=== PATIENT | male | born 1970 | race Caucasian/White ===

== ENCOUNTER 2021-04-13 20:58 | Emergency (ER) | payer SELFPAY ==
[2021-04-13 21:05] VITALS: BP 127/83; PULSE 121; RESP 16; TEMP 36.9; O2SAT 96; BMI 23.3
--- NOTE | 2021-04-13 23:10 | W.ED.SKABFB ---
HPI - Skin/Abscess/Foreign Bdy General: Chief complaint: Skin/Abscess/Foreign Body Stated complaint: SPIDER BITE Time Seen by Provider: 04/13/21 21:15 History of Present Illness: HPI narrative: The patient is a 50-year-old male who says at 3 AM this morning he was drying himself off after a shower and felt something bite him on his penis. He thinks it is a brown recluse and brings it in in a glass jar . To my eye based on [employer] it is likely a brown recluse. He says his penis is swollen and has a bite shasha on it. MD complaint: insect bite/sting Tetanus up to date: no Location: genitals Severity: severe Quality: sharp Pain Consistency: constant Relieving factors: none Exacerbating factors: palpation Context: witnessed insect bite Review of Systems General: Reports: 10 or more systems reviewed and unremarkable except in HPI and below Const: Denies: fatigue Eyes: Denies: change in vision, blurry vision or eye redness ENMT: Denies: throat pain, swelling of lips/tongue, ear or mastoid pain or nasal congestion Card: Denies: chest pain, palpitations, irregular heart rhythm, edema, dyspnea on exertion or orthopnea Resp: Denies: dyspnea, productive cough or non-productive cough GI: Denies: abdominal pain, diarrhea or GI cramping : Reports: other (Pain and swelling to penis and shaft.); Denies: flank pain, difficulty urinating, urinary frequency or urinary urgency Musc: Denies: neck pain, back pain, extremity pain, joint pain, joint redness, limited range of motion or muscle weakness Skin/Breast: Denies: rash, pruritus, erythema, skin pain or skin tenderness Neuro: Denies: headache(s), numbness in extremities, weakness in extremities, sensory changes, difficulty walking, dizziness, confusion or Slurred speech present Psych: Denies: anxiety or depression Endo: Denies: polyuria All/Imm: Denies: urticaria, throat swelling or tongue swelling Physical Exam Const: COMMON NORMALS: no acute distress, average body habitus, patient oriented x3, no limitations, healthy appearing, alert and well nourished GENERAL APPEARANCE: cooperative, comfortable, well kempt and well developed ORIENTATION/CONSCIOUSNESS: Yes awake, Yes oriented to person, Yes oriented to place and Yes oriented to time HENMT: COMMON NORMALS: normocephalic, external ears normal and Normal external nose present HEAD & SCALP: normal to inspection and normocephalic NOSE: Normal external nose present EXTERNAL EAR: Yes external ears normal MOUTH: Normal oral and palatal mucosa present THROAT: posterior oropharynx normal Eye: COMMON NORMALS: Equal, round and reactive pupils present and EOMs intact bilaterally GENERAL EYE: appearance normal, both eyes and all related structures PUPIL: Yes Equal, round and reactive pupils present Neck/C-Spine: COMMON NORMALS: full ROM, no lymphadenopathy, no meningeal signs and no JVD GENERAL: Yes normal visual inspection Lymph: LYMPHATIC: no lymphadenopathy noted Chest: COMMONS NORMALS: normal inspection of the chest and normal palpation of entire chest wall Resp: COMMON NORMALS: normal respiratory effort, No retractions, No use of accessory muscles, clear to auscultation bilaterally and percussion normal EFFORT & INSPECTION: Yes able to speak in complete sentences AUSCULTATION: clear to auscultation bilaterally PERCUSSION: percussion normal Cardio: COMMON NORMALS: no JVD, regular rhythm, S1 normal heart sound present, S2 normal heart sound present and Peripheral pulses 2+ throughout RATE: tachycardic RHYTHM: regular rhythm HEART SOUNDS: S1 normal heart sound present and S2 normal heart sound present PERIPHERAL PULSES: Peripheral pulses 2+ throughout GI: COMMON NORMALS: Normal to inspection, nondistended, normoactive bowel sounds present, Soft to palpation, non-tender and no masses INSPECTION: Yes normal to inspection PALPATION: Yes Soft to palpation : COMMON NORMALS: Yes no CVA tenderness BLADDER/KIDNEY EXAM: Yes no CVA tenderness OTHER: The patient has a likely insect bite to the glans of his penis at the [place]. There is a streak of red erythema there. The shaft of his penis is grossly swollen and there are some dark areas in the swelling. This is likely an insect bite that is venomous. Back/Pelvis: COMMON NORMALS: no CVA tenderness, thoracic and lumbar spine normal to inspection, no thoracic nor lumbar tenderness and thoraco-lumbar ROM normal Extremity: COMMON NORMALS: normal to inspection, full ROM, capillary refill normal, no joint enlargement and no pedal edema GENERAL: Yes normal exam except as noted Neuro: COMMON NORMALS: patient oriented x3, CN's II-XII intact bilaterally, moves all extremities, no focal motor deficits, no sensory deficits noted and gait normal SENSORIUM/ORIENTATION: Yes alert, Yes oriented to person, Yes oriented to place and Yes oriented to time MENINGEAL SIGNS: Yes no meningeal signs Psych: COMMON NORMALS: mental status grossly normal, Normal thought process present, cooperative, normal affect and speech normal APPEARANCE: Yes well kempt ATTITUDE: Yes calm SPEECH: Yes normal speech THOUGHT PROCESS: Normal thought process present Skin: COMMON NORMALS: no rashes or lesions noted GENERAL SKIN EXAM: no rashes or lesions noted Course Vital Signs: Vital signs: Vital Signs Temperature 98.5 F 04/13/21 21:05 Pulse Rate 121 H 04/13/21 21:05 Respiratory Rate 16 04/13/21 21:05 Blood Pressure 127/83 04/13/21 21:05 Pulse Oximetry 96 04/13/21 21:05 MDM - Skin/Abscess/Foreign Bdy MDM Narrative: Medical decision making narrative: The patient obviously has a poisonous insect bite to his glans of his penis with gross swelling to his shaft of his penis and some darkening in areas. I recommended cleaning, placing IV, and transporting him to [facility] ED and even spoke with Dr. Blankenship who accepted for transfer. I discussed plans with the patient to insert IV clean wound, antibiotics, tetanus, transfer to [facility] ED by ambulance. He refused transfer by ambulance and asked to leave AGAINST MEDICAL ADVICE. I discussed with him that a brown recluse bite is serious and he could very well lose his penis. He is alert and oriented x4 and understands and accepts those risks. I recommended he seek treatment immediately he says he will. Discharge Plan Discharge Patient Disposition: Left Against Medical Advice Clinical Impression: Brown recluse spider bite Coding Level of Care Code ED Ladle Watcher for Randy Fwd Exam Comprehensive
== END 2021-04-13 21:50 | disposition left against medical advice (07) ==
PROVIDERS: Emergency Provider Family Medicine
DX: T63.331A Toxic effect of venom of brown recluse spider, accidental (unintentional), initial encounter (principal); R22.2 Localized swelling, mass and lump, trunk; Z53.29 Procedure and treatment not carried out because of patient's decision for other reasons
CPT/HCPCS: 99281